=== PATIENT | female | born 1955 | race Caucasian/White ===

== ENCOUNTER → 2019-04-20 | Outpatient (CLI) | payer BC ==
[~2019-04-20] MED LIST: ALEVE 220MG220 MG PO; ESTRACE 1MG1 MG/TAB PO; LEVOXYL0.075 MG PO; LEVOXYL0.175 MG PO; MOTRIN 200200 MG/TAB PO; NEURONTIN300 MG/CAP PO; PRINIVIL20 MG PO; TIROSINT150 MC1 PO; ULTRAM 50MG TAB50 MG PO; VITAMIN B-1000 MCG/T PO
== END ==
LOC: MC.RAD 09:40
DX: Z12.31 Encounter for screening mammogram for malignant neoplasm of breast (principal); N63.10 Unspecified lump in the right breast, unspecified quadrant

== ENCOUNTER → 2019-04-23 | Outpatient (CLI) | payer BC | LOC: MC.RAD 09:30 | DX: N63.10 Unspecified lump in the right breast, unspecified quadrant (principal) ==